=== PATIENT | male | born 1980 | race Caucasian/White ===

== ENCOUNTER 2020-03-06 10:36 | Observation (INO) ==
[2020-03-06 11:28] LABS: Basophils # 0.1 10*3/uL (0.0-0.2); Basophils % 0.6 % (0.0-0.8); Eosinophils # 0.2 10*3/uL (0.0-0.87); Eosinophils % 2.3 % (0.00-10.9); Hemoglobin 14.1 GM/DL (14.0-18.0); Immature Granulocytes % 0.3 %; Immature Granulocytes Absolute 0.03 #; Lymphocytes # 1.9 10*3/uL (1.4-4.0); Lymphocytes % 20.8 % (21.2-54.2); Mean Corpuscular HGB Conc 32.8 GM/DL (32-36); Mean Corpuscular Volume 91.7 FL (87-102); Mean Platelet Volume 10.6 FL (9.6-12.0); Monocytes % 4.2 % (1.7-12.7); Neutrophils % 71.8 % (38.7-73.9); Platelet Count 179 T/CUMM (130-400); Red Blood Count 4.69 MC/CUMM (3.8-5.5); Red Cell Distribution Width 13.2 % (9.3-17.3)
[2020-03-06 12:02] LABS: Apearance,Urine CLEAR (Clear); Bilirubin,Urine Negative (Negative); Blood, Urine Negative (Negative); Glucose,Urine (UA) Negative (Negative); Ketones,Urine Negative (Negative); Mucus,Urine Occasional /LPF (Occasional); Nitrite,Urine Negative (Negative); Protein,Urine Negative; Squamous Epithelial Cell,Urine Occasional /HPF (0-10); Urine Color Straw (Yellow); Urine Specific Gravity 1.006 (1.001-1.035); Urine Urobilinogen < 2.0 EU/DL (0.2-1.0); WBC,Urine 1 /HPF (0-6)
[2020-03-06 12:39] LABS: Barbiturates Screen,Urine Negative (Negative); Benzodiazepines Screen,Urine Negative (Negative); Cannabinoid Screen,Urine Positive (Negative); Opiate Screen,Urine Negative (Negative); Phencyclidine Screen,Urine Negative (Negative)
[2020-03-06 12:40] LABS: Acetaminophen < 2.0 UG/ML (10-30); Salicylate < 2.8 MG/DL (2.8-20)
[2020-03-06 12:47] LABS: Alanine Aminotransferase 16 U/L (16-61); Albumin 3.8 G/DL (3.4-5.0); Alkaline Phosphatase 60 U/L (45-117); Aspartate Amino Transferase 7 U/L (0-37); Bilirubin,Total < 0.39 MG/DL (0.2-1.0); Blood Urea Nitrogen 6 MG/DL (7-18); Calcium 8.8 MG/DL (8.5-10.1); Estimated Glom Filtration Rate 114 ML/MIN; Glucose 119 MG/DL (74-106); Osmolality,Calculated 275.5 MOS/KG (273-304); Thyroid Stimulating Hormone 0.539 uIU/ml (0.358-3.74); Total Protein 7.2 G/DL (6.4-8.3)
[2020-03-06] MEDS ORDERED: ONDANSETRON ODT 4 MG TABLET PO ONE (12:57)
[2020-03-06] MEDS ORDERED: ONDANSETRON ODT 4 MG TABLET PO STA (13:00)
[2020-03-06] MEDS ORDERED: DEXTROSE 50% 25 GM/50 ML VIAL IV PRN (19:53)
[2020-03-06] MEDS ORDERED: GLUCAGON 1 MG VIAL IM PRN (19:53)
[2020-03-06] MEDS: ENOXAPARIN 40 MG/0.4 ML SYRINGE SUBCUT SCH (22:22)
[2020-03-07 05:53] LABS: Basophils % 0.7 % (0.0-0.8); Eosinophils # 0.3 10*3/uL (0.0-0.87); Eosinophils % 5.5 % (0.00-10.9); Hemoglobin 13.1 GM/DL (14.0-18.0); Lymphocytes % 52.6 % (21.2-54.2); Mean Corpuscular HGB Conc 32.8 GM/DL (32-36); Mean Corpuscular Volume 91.7 FL (87-102); Mean Platelet Volume 10.8 FL (9.6-12.0); Monocytes % 5.5 % (1.7-12.7); Neutrophils % 35.7 % (38.7-73.9); Platelet Count 186 T/CUMM (130-400); Red Blood Count 4.36 MC/CUMM (3.8-5.5); Red Cell Distribution Width 13.2 % (9.3-17.3); White Blood Count 5.6 T/CUMM (4-12)
[2020-03-07 06:11] LABS: Calcium 8.2 MG/DL (8.5-10.1); Osmolality,Calculated 274.5 MOS/KG (273-304)
[2020-03-07 06:16] LABS: Eosinophils 7 % (0-10); Hypochromasia 1+; Lymphocytes 45 % (20-55); Platelet Estimate Adequate; Segmented Neutrophils 44 % (50-85); Total Cells Counted 100
[2020-03-07 06:17] LABS: Atypical Lymphocytes Few
[2020-03-07] MEDS: ENOXAPARIN 40 MG/0.4 ML SYRINGE SUBCUT SCH (21:07)
[2020-03-08] MEDS: MULTIVITAMIN (CENTRUM) TABLET PO SCH (09:23)
[2020-03-08] MEDS: ENOXAPARIN 40 MG/0.4 ML SYRINGE SUBCUT SCH (20:58)
[2020-03-08] MEDS: CLORAZEPATE 7.5 MG TABLET PO PRN (21:06)
[2020-03-08] MEDS: ACETAMINOPHEN 325 MG TABLET PO PRN (21:06)
[2020-03-09] MEDS: MULTIVITAMIN (CENTRUM) TABLET PO SCH (09:53)
[2020-03-09] MEDS: ACETAMINOPHEN 325 MG TABLET PO PRN ×3 (09:57→20:25)
[2020-03-09] MEDS: CLORAZEPATE 7.5 MG TABLET PO PRN (20:25)
[2020-03-09] MEDS: ENOXAPARIN 40 MG/0.4 ML SYRINGE SUBCUT SCH (20:25)
[2020-03-09] MEDS: ONDANSETRON 4 MG/2 ML VIAL IV PRN (22:35)
[2020-03-10 08:39] LABS: Basophils % 0.6 % (0.0-0.8); Eosinophils # 0.1 10*3/uL (0.0-0.87); Eosinophils % 1.5 % (0.00-10.9); Immature Granulocytes % 0.2 %; Immature Granulocytes Absolute 0.01 #; Lymphocytes # 2.1 10*3/uL (1.4-4.0); Lymphocytes % 37.9 % (21.2-54.2); Mean Corpuscular HGB Conc 34.8 GM/DL (32-36); Mean Platelet Volume 10.5 FL (9.6-12.0); Monocytes % 8.5 % (1.7-12.7); Neutrophils % 51.3 % (38.7-73.9); Platelet Count 227 T/CUMM (130-400); Red Blood Count 5.29 MC/CUMM (3.8-5.5); Red Cell Distribution Width 12.7 % (9.3-17.3); White Blood Count 5.4 T/CUMM (4-12)
[2020-03-10 09:04] LABS: Osmolality,Calculated 271.8 MOS/KG (273-304)
[2020-03-10] MEDS: lisinopriL 5 MG TABLET PO SCH ×3 (09:39→10:30)
[2020-03-10] MEDS: MULTIVITAMIN (CENTRUM) TABLET PO SCH (09:39)
[2020-03-10] MEDS: CLORAZEPATE 7.5 MG TABLET PO PRN ×2 (11:23→22:12)
[2020-03-10] MEDS ORDERED: DICYCLOMINE 10 MG CAPSULE PO PRN (11:26)
[2020-03-10] MEDS ORDERED: NICOTINE 21 MG/24 HR PATCH TRANSDERM PRN (12:29)
[2020-03-10] MEDS: THIAMINE 100 MG TABLET PO SCH (14:40)
[2020-03-10] MEDS: HydrOXYzine PAMOATE 25 MG CAPSULE PO PRN ×2 (16:18→22:12)
[2020-03-10] MEDS: METHOCARBAMOL 750 MG TABLET PO PRN (16:19)
[2020-03-10] MEDS: ENOXAPARIN 40 MG/0.4 ML SYRINGE SUBCUT SCH (20:37)
[2020-03-11] MEDS: METHOCARBAMOL 750 MG TABLET PO PRN ×3 (00:20→21:20)
[2020-03-11] MEDS: HydrOXYzine PAMOATE 25 MG CAPSULE PO PRN (04:15)
[2020-03-11] MEDS: CLORAZEPATE 7.5 MG TABLET PO PRN (04:15)
[2020-03-11] MEDS: lisinopriL 5 MG TABLET PO SCH (09:41)
[2020-03-11] MEDS: THIAMINE 100 MG TABLET PO SCH (09:41)
[2020-03-11] MEDS: MULTIVITAMIN (CENTRUM) TABLET PO SCH (09:41)
[2020-03-11] MEDS: ONDANSETRON 4 MG/2 ML VIAL IV PRN (14:00)
[2020-03-11] MEDS: busPIRone 5 MG TABLET PO SCH (21:20)
[2020-03-11] MEDS: ENOXAPARIN 40 MG/0.4 ML SYRINGE SUBCUT SCH (21:20)
[2020-03-12] MEDS: lisinopriL 5 MG TABLET PO SCH (10:34)
[2020-03-12] MEDS: busPIRone 5 MG TABLET PO SCH ×2 (10:34→20:57)
[2020-03-12] MEDS: MULTIVITAMIN (CENTRUM) TABLET PO SCH (10:34)
[2020-03-12] MEDS: THIAMINE 100 MG TABLET PO SCH (10:35)
[2020-03-12] MEDS: ENOXAPARIN 40 MG/0.4 ML SYRINGE SUBCUT SCH (20:57)
[2020-03-13] MEDS: lisinopriL 5 MG TABLET PO SCH (08:51)
[2020-03-13] MEDS: THIAMINE 100 MG TABLET PO SCH (08:51)
[2020-03-13] MEDS: MULTIVITAMIN (CENTRUM) TABLET PO SCH (08:51)
[2020-03-13] MEDS: busPIRone 5 MG TABLET PO SCH (08:52)
[2020-03-13 15:37] VITALS: BP 139/87
== END 2020-03-13 18:35 ==
LOC: N.EDINP 10:36 → N.ED 10:36 → SUATTDRO 19:53 → N.3E 21:46
PROVIDERS: ADMIT Internal Medicine; ATTEND Family Medicine